=== PATIENT | female | born 1985 | race Native Hawaiian/Other Pacific Islander ===

== ENCOUNTER 2018-06-15 02:15 | Inpatient (IN) | payer OTHER ==
--- NOTE | 2018-06-15 03:40 | OBADHP ---
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 Cuadra (elevator starter) for 2 years alpha thalassemia follows with Dr. Gibbs ( retail advisor) Meds: PNV, levothyroxine 125mcg, s/p 8 infusions of IV iron NKDA denie smoking drinking and drug use A/P: with SROM at 40 weeks admit to L_D IVF/NPO EFM/TOCO SVE fingertip irregular contractions noted will admit under patients private physician Dr. Serrano IP Chief Complaint: Suspected ruptured membranes FHR Category Provider Fetus A: Category I Dilatation, Provider: FT Effacement, Provider: thick Station, Provider: -3 EGA AdmitDate IP: 40.0 IP Adm Impression: Term, intrauterine ; Ruptured Membranes IP Admit Plan: Admit to unit
[2018-06-15 03:46] VITALS: BMI 29.0
[2018-06-15] MEDS ORDERED: Lactated Ringer's 1,000 ML IV ONE (03:47)
[2018-06-15 04:42] LABS: BASO % 0.3 % (0.0-2.0); EOS # 0.2 K/uL (0.0-0.7); EOS % 1.5 % (0.0-4.0); HEMOGLOBIN 9.5 g/dL (11.0-16.0); LYMPH # 1.6 K/uL (1.0-4.3); LYMPH % 14.6 % (20.0-40.0); MEAN CORPUSCULAR HEMOGLOBIN 19.9 pg (27.0-31.0); MEAN CORPUSCULAR HGB CONC 31.4 g/dL (33.0-37.0); MEAN PLATELET VOLUME 11.4 fL (7.2-11.7); MONO # 0.7 K/uL (0.0-0.8); MONO % 6.4 % (0.0-10.0); NEUT # 8.3 K/uL (1.8-7.0); NEUT % 77.2 % (50.0-75.0); NRBC % 0.1 % (0.0-2.0); RBC 4.79 Mil/uL (3.80-5.20); RED CELL DISTRIBUTION WIDTH 15.8 % (11.5-14.5); WHITE BLOOD COUNT 10.8 K/uL (4.8-10.8)
[2018-06-15 05:44] LABS: MEAN CELL VOLUME 63.2 fL (81.0-99.0)
[2018-06-15 16:24] LABS: RAPID PLASMA REAGIN NONREACTIVE (NONREACTIVE)
[2018-06-15] MEDS ORDERED: Fentanyl/Bupivacaine HCl 250 ML EPI ONE (17:16)
[2018-06-15] MEDS ORDERED: Oxytocin 30 UNIT 30 UNITS/500 ML BAG IV SCH (17:30)
[2018-06-15] MEDS ORDERED: Oxytocin 30 UNIT 30 UNITS/500 ML BAG IV ONE (18:00)
[2018-06-15] MEDS: AMPicillin 2 GM in Sodium Chloride 0.9% 100 ML IVPB SCH (19:30)
--- NOTE | 2018-06-15 20:54 | OBPN ---
Datetime: 06/15/2018 19:26 IP Progress Impression: Non-reassuring heart rate IP Procedures: Intrauterine Pressure Catheter; Scalp Electrode; Sterile Vag Exam Membranes, Provider: Ruptured Contraction Comments Provider: 2-3 FHR - Baseline A Provider: 125 Gestation - Est Wks by US: 40.0 IP Progress Note Comment: FHR noted for deceleration versus loss of contact Patient received in LDR#1 at 1905 hours, in left lateral position, oxygen mask in place, pitocin a t 4 mUnits/min. FHR noted approximately 80s bpm. Cervical exam as above. Pitocin stopped, IUPC and ISE inserted. BP recorded: 94/64, on presentaito n to room; then 101/55 and 109/46. IV bolus commenced. FHR improved to 125 bpm. As above. Plan: 1) observe Addendum: 2037 hours FHR tracing continues with mild late decelerations. Case D/W Dr. Serrano: will proceed with Daniel an delivery. Patient and husbnd informed of same. Patient expressed an understanding. No questions offered at t his time Assessment: 32 y.o. P0, 40w w, PPROM x 19 1/2 hours received on e dose Ampicili at 1930 hours; re petitive late decelerations remote from delivery. Alpha thalassemia - S/P IV iron therapy with an adm ittiong hgb of 9.5. Hypothyroidism. Patient for primary C/S. Dr. Serrano to obtain surgical consents. Patient is clinically stable. Plan: 1) Abdominal prep and shave 2) Notify anesthesia 3) Notify peds 4) T_C x 2 units 5) Pre-op meds 6) Patient solution developer to O.R. Vital Signs Provider: Reviewed; Within Normal Limits NICHD Accel Fetus A IP Provider: 15X15 FHR Category Provider Fetus A: Category II NICHD Variability Prov Fetus A: Moderate 6-25bpm Dilatation, Provider: 3-4 Effacement, Provider: 60 Station, Provider: -3 NICHD Decel Fetus A IP Provider: Late
[2018-06-15] MEDS ORDERED: Sodium Bicarbonate (8.4%) 50 Meq Syringe ONE (21:00)
[2018-06-15] MEDS ORDERED: cefOXitin IV 2 gm in Dextrose 2 GM/50 ML BAG IVPB ONE ×2 (21:29→21:31)
--- NOTE | 2018-06-15 21:29 | OBADHP ---
Datetime: 06/15/2018 21:27 Dilatation, Provider: 3 Effacement, Provider: 80 Datetime: 06/15/2018 19:26 FHR - Baseline A Provider: 125 Membranes, Provider: Ruptured Contraction Comments Provider: 2-3 Gestation - Est Wks by US: 40.0 Vital Signs Provider: Reviewed; Within Normal Limits NICHD Variability Prov Fetus A: Moderate 6-25bpm NICHD Accel Fetus A IP Provider: 15X15 FHR Category Provider Fetus A: Category II NICHD Decel Fetus A IP Provider: Late Station, Provider: -3 Datetime: 06/15/2018 03:35 IP Hx Assessment: The History has been Reviewed and is Current EGA AdmitDate IP: 40.0 IP Admit Plan: Admit to unit; Initiate labor protocol
[2018-06-15] MEDS ORDERED: Sodium Citrate/Citric Acid 15 ml Sol ONE (21:30)
[2018-06-15] MEDS ORDERED: Sodium Citrate/Citric Acid 15 ml Sol PO ONE (21:30)
[2018-06-15] MEDS ORDERED: Oxytocin 20 units in LR 2,000 ML IV ONE (21:30)
--- NOTE | 2018-06-15 21:40 | OBPN ---
Datetime: 06/15/2018 21:27 IP Progress Impression: Non-reassuring heart rate IP Procedures: Sterile Vag Exam FHR - Baseline A Provider: 130 IP Progress Note Comment: pt was examined at bed side ve 4/80/-1 primary /s for non reassuring tracing pt understand and agrees NICHD Variability Prov Fetus A: Moderate 6-25bpm Dilatation, Provider: 3 Effacement, Provider: 80 Station, Provider: -1q1-4
[2018-06-15] MEDS ORDERED: Oxycodone/Acetaminophen 5/325 mg Tab PO PRN (21:49)
[2018-06-15] MEDS ORDERED: Oxytocin 10 Units/ml Inj ONE ×2 (22:08→22:35)
--- NOTE | 2018-06-15 22:42 | OBDS ---
DELIVERY PERSONNEL Delivery Doctor: Nuno Serrano MD Central Office Equipment Engineer: Jessica Acuña RN Anesthesiologist: DR DIMAS MATERNAL INFORMATION Delivery Anesthesia: Epidural Provider Comments: dr serrano privare baby deliverd in dop. cord arround neck emd clean. apgart 9/9 cord blod sent no com LABOR SUMMARY EDC: 06/15/2018 00:00 No. Babies in Womb: 1 LABOR INFORMATION Cervical Ripening Agents: Cytotec @ (Annotations: Cytotec 50mcg PO Q4H) Group B Beta Strep: Negative (Annotations: on documents dated 05/10/18) MEMBRANES Membranes Rupture Method: Spontaneous BABY A INFORMATION Forceps: N/A Vacuum Extraction: N/A PRESENTATION/POSITION BABY A Presentation: Cephalic Cephalic Presentation: Vertex Vertex Position: dop Breech Presentation: N/A PLACENTA INFORMATION BABY A Placenta Method of Delivery: Spontaneous Placenta Status: Delivered INFORMATION BABY A Gestational Age at Delivery: 40.0 Gestational Status: Term IDENTIFICATION/MEDS BABY A ID Band Number: [id number] Sensor Number: [id number] WEIGHT/LENGTH BABY A Infant Birthweight (gms): 3115 Weight (lb): 6 Weight (oz): 14 Infant Length Inches: 19.00 Infant Length cms: 48.3 CORD INFORMATION BABY A Nuchal Cord : N/A
[2018-06-16] MEDS ORDERED: HYDROmorphone 0.5 mg/0.5 ml ISec IVP PRN (00:46)
[2018-06-16] MEDS: AMPicillin 2 GM in Sodium Chloride 0.9% 100 ML IVPB SCH ×2 (01:30→07:45)
[2018-06-16] MEDS: Oxycodone/Acetaminophen 5/325 mg Tab PO PRN ×3 (06:21→22:38)
[2018-06-16 07:54] LABS: HEMOGLOBIN 8.4 g/dL (11.0-16.0); MEAN CELL VOLUME 63.3 fL (81.0-99.0); MEAN CORPUSCULAR HEMOGLOBIN 19.9 pg (27.0-31.0); MEAN CORPUSCULAR HGB CONC 31.4 g/dL (33.0-37.0); MEAN PLATELET VOLUME 10.9 fL (7.2-11.7); RBC 4.22 Mil/uL (3.80-5.20); RED CELL DISTRIBUTION WIDTH 15.8 % (11.5-14.5); WHITE BLOOD COUNT 12.3 K/uL (4.8-10.8)
[2018-06-16] MEDS: Simethicone 80 mg Chewtab PO SCH ×4 (10:41→21:19)
[2018-06-16] MEDS: Prenatal Multivit/Folic Acid/Iron Tab PO SCH (10:42)
--- NOTE | 2018-06-16 16:06 | OBPPN ---
Datetime: 06/16/2018 11:51 PP Pain Prov: Within normal limits PP Nausea Prov: Denies PP Flatus Prov: No PP BM Prov: No PP Breasts Prov: Not Done PP Heart Prov: Normal PP Lungs Prov: Normal PP Abdomen/Uterus Prov: Normal PP Lochia Prov: Normal PP Vulva/Perineum Prov: Normal PP CVA Tenderness Prov: Normal PP Extremities Prov: Normal PP C/S Incision Prov: Not Applicable PP Progress Prov: Abnormal PP Comments Phys Exam Prov: Dressing clean, dry and intact [place] out and not voided yet PP Impression Prov: Normal progression PP Plan Prov: Continue present management; consult PP Progress Note Prov: DOD Pt seen and examined per Dr. Serrano's request S/P Primary C/S secondaty for persistent lates Pain controlled with medication Not because " No milk" and advised to increase po water intake and to place baby at breast Q 2 hours Eating OK, but drinking very little water and advised to increase po water intake PP H_H 8.4/26.7 Acute anemia secondary to acute blood loss and superimposed on chronic anemia. asymptomatic Started on Fe and Colace BID Will repeat CBC in AM, per Shakira Serrano's recommendation Stable and Satisfactory condition and recovery Advance care IP PP Procedures: None
[2018-06-17] MEDS: Levothyroxine 125 MCG TAB PO SCH (06:23)
[2018-06-17] MEDS ORDERED: Levothyroxine 25 MCG TAB PO SCH (06:30)
[2018-06-17] MEDS: Simethicone 80 mg Chewtab PO SCH ×4 (10:02→21:39)
[2018-06-17] MEDS: Prenatal Multivit/Folic Acid/Iron Tab PO SCH (10:02)
--- NOTE | 2018-06-17 21:21 | CP.PCM.DIS ---
Provider - Provider Date of Admission: 06/15/18 03:47 Attending physician: Danny Srerano MD Time Spent in preparation of Discharge (in minutes): 20 Diagnosis - Discharge Diagnosis (1) S/P primary low transverse Status: Acute (2) PROM (premature rupture of membranes) Status: Acute Hospital Course - Lab Results Lab Results: Most Recent Lab Values WBC 12.3 K/uL (4.8-10.8) H 06/16/18 07:34 RBC 4.22 Mil/uL (3.80-5.20) 06/16/18 07:34 Hgb 8.4 g/dL (11.0-16.0) L 06/16/18 07:34 Hct 26.7 % (34.0-47.0) L 06/16/18 07:34 MCV 63.3 fL (81.0-99.0) L 06/16/18 07:34 MCH 19.9 pg (27.0-31.0) L 06/16/18 07:34 MCHC 31.4 g/dL (33.0-37.0) L 06/16/18 07:34 RDW 15.8 % (11.5-14.5) H 06/16/18 07:34 Plt Count 231 K/uL (130-400) 06/16/18 07:34 MPV 10.9 fL (7.2-11.7) 06/16/18 07:34 Neut % (Auto) 77.2 % (50.0-75.0) H 06/15/18 04:35 Lymph % (Auto) 14.6 % (20.0-40.0) L 06/15/18 04:35 [place] % (Auto) 6.4 % (0.0-10.0) 06/15/18 04:35 Eos % (Auto) 1.5 % (0.0-4.0) 06/15/18 04:35 Baso % (Auto) 0.3 % (0.0-2.0) 06/15/18 04:35 Neut # (Auto) 8.3 K/uL (1.8-7.0) H 06/15/18 04:35 Lymph # (Auto) 1.6 K/uL (1.0-4.3) 06/15/18 04:35 [place] # (Auto) 0.7 K/uL (0.0-0.8) 06/15/18 04:35 Eos # (Auto) 0.2 K/uL (0.0-0.7) 06/15/18 04:35 Baso # (Auto) 0.0 K/uL (0.0-0.2) 06/15/18 04:35 Differential Comment 06/16/18 07:34 RPR Nonreactive (NONREACTIVE) 06/15/18 04:35 Hep Bs Antigen Negative (NEGATIVE) 06/15/18 04:35 HIV 1&2 Antibody Screen Negative (NEGATIVE) 06/15/18 04:35 Rubella IgG Antibody Positive (POSITIVE) 06/15/18 04:35 Blood Type B POSITIVE 06/15/18 04:35 Antibody Screen Negative 06/15/18 04:35 Discharge Exam - Head Exam Head Exam: ATRAUMATIC, NORMAL INSPECTION, NORMOCEPHALIC - Eye Exam Eye Exam: EOMI, Normal appearance, PERRL Pupil Exam: NORMAL ACCOMODATION, PERRL - GI/Abdominal Exam GI & Abdominal Exam: Normal Bowel Sounds - Rectal Exam Rectal Exam: NORMAL INSPECTION - Exam Exam: Circumcision, NORMAL INSPECTION External exam: NORMAL EXTERNAL EXAM Speculum exam: NORMAL SPECULUM EXAM Bimanual exam: NORMAL BIMANUAL EXAM - Neurological Exam Neurological exam: Alert, CN II-XII Intact, Normal Gait, Oriented x3, Reflexes Normal - Psychiatric Exam Psychiatric exam: Normal Affect, Normal Mood - Skin Skin Exam: Dry, Intact, Normal Color, Warm Discharge Plan - Follow Up Plan Condition: GOOD Disposition: HOME/ ROUTINE
--- NOTE | 2018-06-17 21:32 | OBPPN ---
Datetime: 06/17/2018 21:14 PP Pain Prov: Within normal limits PP Nausea Prov: Denies PP Flatus Prov: Yes PP Abdomen/Uterus Prov: Normal PP Lochia Prov: Normal PP Extremities Prov: Normal PP Impression Prov: Normal progression PP Plan Prov: Continue present management PP Progress Note Prov: pt was excamined at bed side, pain under vcontrol,no n/v,tolerating deit,,voi parvez,min lochias pod#2 s/p c/s cont pain meds cont post op courage ambulatuion Vital Signs Provider PP: Reviewed; Within Normal Limits
[2018-06-18] MEDS: Levothyroxine 125 MCG TAB PO SCH (06:41)
[2018-06-18 08:07] LABS: HEMOGLOBIN 7.5 g/dL (11.0-16.0); MEAN CELL VOLUME 63.6 fL (81.0-99.0); MEAN CORPUSCULAR HEMOGLOBIN 20.8 pg (27.0-31.0); MEAN CORPUSCULAR HGB CONC 32.7 g/dL (33.0-37.0); MEAN PLATELET VOLUME 10.2 fL (7.2-11.7); RBC 3.6 Mil/uL (3.80-5.20); RED CELL DISTRIBUTION WIDTH 16.1 % (11.5-14.5); WHITE BLOOD COUNT 9.2 K/uL (4.8-10.8)
[2018-06-18 09:14] VITALS: BP 111/67
[2018-06-18] MEDS: Prenatal Multivit/Folic Acid/Iron Tab PO SCH (09:47)
[2018-06-18] MEDS: Simethicone 80 mg Chewtab PO SCH ×3 (09:47→18:22)
[2018-06-18] MEDS ORDERED: Tdap Vaccine 0.5 ml Vial (10-64 yrs) IM ONE (10:25)
--- NOTE | 2018-06-18 15:52 | OBPPN ---
Datetime: 06/18/2018 11:23 PP Pain Prov: Within normal limits PP Nausea Prov: Denies PP Flatus Prov: Yes PP BM Prov: Yes PP Breasts Prov: Not Done PP Heart Prov: Normal PP Lungs Prov: Normal PP Abdomen/Uterus Prov: Normal PP Lochia Prov: Normal PP Vulva/Perineum Prov: Normal PP CVA Tenderness Prov: Normal PP Extremities Prov: Normal PP C/S Incision Prov: Normal PP Progress Prov: Normal PP Comments Phys Exam Prov: Incision clean, dry and intact. Healing well PP Impression Prov: Normal progression PP Plan Prov: Continue present management; Discharge PP Progress Note Prov: SUBJECTIVE: Patient was seen and examined at bedside this AM per Dr. Serrano's request. She offers no new compl aints this AM and states she feels fine. She is tolerating regular diet without nausea/vomiting. She does report needing the stool softner but states she had a BM earlier this AM. She requests the Tdap vaccine today and ordered. She denies dizziness, SOB, exertional dyspnea, or fatigue. She is currentl y bottle and breast feeding but has not been feeding every 2 hours consistently. OBJECTIVE: H/H noted to be decreasing from 8.4/26.7 to 7.5/22.9 this AM. Otherwise normal exam findings as ab ove ASSESSEMENT: 32 yo F now s/p c/s POD # 3. Stable and Satisfactory condition and recovery Acute Anemia from acute blood loss and superimposed on chronic anemia/ Asymptomatic PLAN: Will plan on discharge today. Will administer Tdap vaccine prior to discharge. Will increase daily colace and iron to three times daily. Prescriptions were given. F/u with Dr. Serrano within 5-7 days and about 6 weeks for repeat CBC. Advised to increase po water intake Continue pain and bowel regimen at home. Patient seen, examined, and discussed with my attending Dr. Ramos covering for Dr. Zach Cruz, , PGY-1 IP PP Procedures: None
--- NOTE | 2018-06-18 18:06 | OBDCSUM ---
Datetime: 06/18/2018 13:24 Discharged to, Provider: Home Follow up at, Provider: Dr Serrano Disch Instr Activity: Normal activity; May Shower Disch Instr Diet: Regular Discharge Diet restrict Prov: none Discharge Instructions, Provider: Routine instructions given Discharge Diagnosis, Provider: Term Delivered Discharge Time: 06/18/2018 13:24 Follow up in weeks, Provider: 2 weeks Disch Referrals: None Contraception discussed, Prov: Yes Disch Activity Restrictions: No exercising; No lifting; No sexual activity; Nothing in vagina - Inte rcourse, tampons, douche Discharge Comment, Provider: SUBJECTIVE: Patient was seen and examined at bedside this AM per Dr. Serrnao's request. She offers no new compl aints this AM and states she feels fine. She is tolerating regular diet without nausea/vomiting. She does report needing the stool softner but states she had a BM earlier this AM. She requests the Tdap vaccine today and ordered. She denies dizziness, SOB, exertional dyspnea, or fatigue. She is currentl y bottle and breast feeding but has not been feeding every 2 hours consistently. OBJECTIVE: H/H noted to be decreasing from 8.4/26.7 to 7.5/22.9 this AM. Otherwise normal exam findings as ab ove ASSESSEMENT: 32 yo F now s/p c/s POD # 3. Stable and Satisfactory condition and recovery Acute Anemia from acute blood loss and superimposed on chronic anemia/ Asymptomatic PLAN: Will plan on discharge today. Will administer Tdap vaccine prior to discharge. Will increase daily colace and iron to three times daily. Prescriptions were given. F/u with Dr. Serrano within 5-7 days and about 6 weeks for repeat CBC. Advised to increase po water intake Continue pain and bowel regimen at home. Contraception after Delivery: Undecided
[2018-06-18 23:08] VITALS: PULSE 98; RESP 20; TEMP 97; O2SAT 100
== END 2018-06-18 19:00 | disposition home or self-care (01) | DRG 787 ==
LOC: C.EROB 02:15 → UNDOADMIN 03:47 → C.4D 03:47 → C.4LDOR 03:47 → C.4D 06-16 02:35 → C.4M 06-16 02:35
PROVIDERS: ADMIT Obstetrics & Gynecology; ATTEND Obstetrics & Gynecology
PROC: 10D00Z1 Extraction of Products of Conception, Low, Open Approach (ICD-10-PCS; principal; 2018-06-15)
PROC: 3E0P7VZ Introduction of Hormone into Female Reproductive, Via Natural or Artificial Opening (ICD-10-PCS; 2018-06-15)
PROC: 3E0234Z Introduction of Serum, Toxoid and Vaccine into Muscle, Percutaneous Approach (ICD-10-PCS; 2018-06-15)
DX: O76 Abnormality in fetal heart rate and rhythm complicating labor and delivery (principal); D62 Acute posthemorrhagic anemia; O98.52 Other viral diseases complicating childbirth; Z37.0 Single live birth; O99.284 Endocrine, nutritional and metabolic diseases complicating childbirth; E03.9 Hypothyroidism, unspecified; Z3A.40 40 weeks gestation of pregnancy; O75.89 Other specified complications of labor and delivery; D56.0 Alpha thalassemia; O99.02 Anemia complicating childbirth; O62.4 Hypertonic, incoordinate, and prolonged uterine contractions; O42.02 Full-term premature rupture of membranes, onset of labor within 24 hours of rupture; Z23 Encounter for immunization; O69.1XX0 Labor and delivery complicated by cord around neck, with compression, not applicable or unspecified; O61.0 Failed medical induction of labor